=== PATIENT | male | born 1985 | race African-American/Black ===

== ENCOUNTER 2017-11-01 00:32 | Emergency (ER) | payer OTHER ==
[~2017-11-01] VITALS: Ht 175.3 cm; Wt 68.0 kg
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
[2017-11-01] MEDS ORDERED: HYDROCODONE/APAP 5/325MG 1 EACH TABLET ONE (02:02)
[2017-11-01] MEDS ORDERED: HYDROCODONE/APAP 10/325MG 1 EA TABLET ONE (02:03)
--- NOTE | 2017-11-01 02:20 | NUR ---
CALLED [facility] "NO OPHTHOMOLOGIT" PER HOUSE SUP
--- NOTE | 2017-11-01 02:22 | NUR ---
CALLED [facility] AND PER G NURSE ALEXA "I MARICRUZ NO OPHTHOMOLOGIST"
[2017-11-01] MEDS ORDERED: HYDROCODONE/APAP 10/325MG 1 EA TABLET PO ONE (02:30)
--- NOTE | 2017-11-01 02:30 | NUR ---
DAYNE AZAR AND PRESENTED CASE.
--- NOTE | 2017-11-01 02:33 | NUR ---
DR. CASTRO SPEAKING TO EDWARD FROM [facility]
--- NOTE | 2017-11-01 02:37 | NUR ---
FACESHEET AND CT RESULTS FAXED REQUESTED.
--- NOTE | 2017-11-01 02:53 | NUR ---
CALLED [facility] AND SPOKE TO MAGGI GONZALEZ RN. CASE PRESENTED.
--- NOTE | 2017-11-01 02:57 | NUR ---
FAXED FACESHEET AND CT RESULTS REQUESTED.
[2017-11-01] MEDS ORDERED: AMOX/CLAVULANATE 875 MG TABLET ONE (02:59)
[2017-11-01] MEDS ORDERED: AMOX/CLAVULANATE 875 MG TABLET PO ONE (03:00)
--- NOTE | 2017-11-01 03:04 | NUR ---
CALLED [facility] AND SPOKE TO BLANCO HARMON. STATES "NO OPHTHO".
--- NOTE | 2017-11-01 03:10 | NUR ---
CALLED [facility] [place] AND SPOKE TO CHYNA SIMEON SUP. STATES "NO OPHTHOMOLOGIST"
--- NOTE | 2017-11-01 03:19 | NUR ---
CALLED [facility] AND SPOKE TO DANDRE GONZALEZ RN. STATES "NO OPHTHO; TRY [facility]"
--- NOTE | 2017-11-01 03:22 | NUR ---
CALLED [facility] AND SPOKE TO MELLO GONZALEZ RN. STATES "NO OPHTHO"
--- NOTE | 2017-11-01 03:27 | NUR ---
per ambulance eta for transport 0900
--- NOTE | 2017-11-01 03:32 | NUR ---
trip number [id number] for ETA [id number]
--- NOTE | 2017-11-01 03:36 | NUR ---
PT ACCEPTED BY DR. MENDIOLA AT [facility] UNDER DR. MENDIOLA THE OPHTHOMOLOGIST. ER TO ER UNDER DR. TRISTAN THE ER [id number] FOR G NURSE.
[2017-11-01] MEDS ORDERED: ONDANSETRON HCL/PF 4 MG/2 ML VIAL ONE ×2 (03:57→05:10)
[2017-11-01] MEDS ORDERED: MORPHINE SULFATE INJ 4 MG/ML DISP.SYRIN ONE ×2 (03:58→05:11)
[2017-11-01] MEDS ORDERED: MORPHINE SULFATE INJ 2 MG/ML DISP.SYRIN IV ONE ×2 (04:00→05:30)
[2017-11-01] MEDS ORDERED: ONDANSETRON HCL/PF 4 MG/2 ML VIAL IV ONE ×2 (04:00→05:30)
[2017-11-01 04:44] VITALS: BP 118/80
--- NOTE | 2017-11-01 05:36 | NUR ---
REPORT GIVEN TO [facility] CIARAN LION
--- NOTE | 2017-11-01 07:12 | NUR ---
NEW ETA OF TRANSPORTATION IS 0830 PER [facility]
--- NOTE | 2017-11-01 08:02 | NUR ---
NEW ETA PER [facility]- [id number]
--- NOTE | 2017-11-01 09:22 | NUR ---
PT DC TO [facility] IN STABLE CONDITION. REPORT GIVEN TO EMS. NAD NOTED. PT STABLE, VSS, AMB WITH STEADY GAIT. RR EVEN AND UNLABORED. NO FURTHER COMPLAINTS.
== END 2017-11-01 09:26 | disposition home or self-care (01) ==
LOC: ER 00:34
DX: S02.2XXA Fracture of nasal bones, initial encounter for closed fracture (principal); S02.32XA Fracture of orbital floor, left side, initial encounter for closed fracture; H05.20 Unspecified exophthalmos; F17.210 Nicotine dependence, cigarettes, uncomplicated; Y04.2XXA Assault by strike against or bumped into by another person, initial encounter; Y93.89 Activity, other specified; Y92.89 Other specified places as the place of occurrence of the external cause; Y99.8 Other external cause status
CPT/HCPCS: 70486; 96374; 96375; 96376; 99284; A4606; J2270 ×2; J2405 ×2; Z7610

== ENCOUNTER 2018-04-26 12:28 | Emergency (ER) | payer OTHER ==
[~2018-04-26] VITALS: Ht 175.3 cm; Wt 67.1 kg
[2018-04-26 12:30] VITALS: BP 126/80
--- NOTE | 2018-04-26 13:52 | NUR ---
I&D DONE BY LIZBETH SHETTY. WOUND CARE PROVIDED. D/C HOME IN STABLE CONDITION.
== END 2018-04-26 13:55 | disposition home or self-care (01) ==
LOC: ER 12:29
DX: L02.01 Cutaneous abscess of face (principal); F17.210 Nicotine dependence, cigarettes, uncomplicated; Z60.2 Problems related to living alone
CPT/HCPCS: 10060; 99283; A4606; A6402; Z7610

== ENCOUNTER 2019-04-07 13:01 | Emergency (ER) | payer OTHER ==
[~2019-04-07] VITALS: Ht 175.3 cm; Wt 65.8 kg
--- NOTE | 2019-04-07 14:02 | NUR ---
patient came in due to left arm pain x 8 days, on room air, Ambulatory with steady gait. Breathing evenly and unlabored. kept comfortable, will continue to monitor accordingly.
[2019-04-07 15:42] VITALS: BP 128/71
--- NOTE | 2019-04-07 15:43 | NUR ---
Patient discharged to home in stable condition. Written and verbal after care instructions given. Patient verbalizes understanding of instruction.
[2019-04-07] MEDS ORDERED: IBUPROFEN 400 MG TABLET PO ONE (16:00)
== END 2019-04-07 15:43 | disposition home or self-care (01) ==
LOC: ER 13:05
DX: S49.82XA Other specified injuries of left shoulder and upper arm, initial encounter (principal); F32.9 Major depressive disorder, single episode, unspecified; F17.210 Nicotine dependence, cigarettes, uncomplicated; Z60.2 Problems related to living alone; W18.09XA Striking against other object with subsequent fall, initial encounter; Y93.39 Activity, other involving climbing, rappelling and jumping off; Y92.89 Other specified places as the place of occurrence of the external cause; Y99.8 Other external cause status
CPT/HCPCS: 73030-TC; 73090-TC; 73110